=== PATIENT | male | born 1970 | race Caucasian/White ===

== ENCOUNTER 2023-01-08 20:24 | Emergency (ER) | payer OTHER ==
[2023-01-08 20:45] VITALS: BP 147/90; PULSE 93
[2023-01-08] MEDS: Tetracaine HCl/PF 0.5% 4 ML Bottle EYELF ONE (20:50)
[2023-01-08] MEDS: Dexamethasone/Tobramycin 0.1-0.3% Ophth Susp 2.5 ML Bottle EYELF SCH (21:03)
== END 2023-01-08 21:11 | disposition home or self-care (01) ==
LOC: SUPCPDRO 20:24 → KA.ED 20:24
DX: S05.02XA Injury of conjunctiva and corneal abrasion without foreign body, left eye, initial encounter (principal); W20.8XXA Other cause of strike by thrown, projected or falling object, initial encounter
CPT/HCPCS: 99283